=== PATIENT | female | born 2005 | race Caucasian/White ===

== ENCOUNTER 2024-10-31 01:51 | Emergency (ER) | payer OTHER, SELFPAY ==
[2024-10-31 01:54] VITALS: BP 140/95; PULSE 108; RESP 16; TEMP 37.1; O2SAT 98; BMI 18.9
--- NOTE | 2024-10-31 02:00 | PC.NURSE ---
per MD Hatch, to hold off on imaging until patient is evaluated in ED.
--- OUTSIDE RECORDS SUMMARY | 2024-10-31 03:18 | XMS_ITS | Encounter Summary ---
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 Name Role Phone Unavailable Primary Care Provider Unavailabl e Encounter Details Date Type Department Care Team (Late st Contact Info) Description 11/23/2017 Conversion Encounter [facility] [address] [address] Social History Tobacco Use Types Packs/Day Years Used Date Smoking Tobacco: Never Assessed Comments Unknown Sex and Gender Information Value Date Recorded Sex Assigned at Not on file Legal Sex Female 6:19 PM EDT Gender Identity Not on file Sexual Orientation Not on file documented as of this encounter Plan of Treatment Not on file documented as of this encounter Visit Diagnoses Not on filedocumented in this encounter
--- NOTE | 2024-10-31 04:10 | PC.NURSE ---
Pt states tired and wants to go home to sleep . [facility]
== END 2024-10-31 04:12 | disposition left against medical advice (07) ==
PROVIDERS: Emergency Provider Emergency Medicine
DX: R51.9 Headache, unspecified (principal); Z53.21 Procedure and treatment not carried out due to patient leaving prior to being seen by health care provider
CPT/HCPCS: 99281

== ENCOUNTER 2025-02-16 10:49 | Outpatient (AMB) | payer OTHER, SELFPAY ==
--- NOTE | 2025-02-16 10:53 | A.OFFPC_ITS ---
Vital Signs 02/16/25 10:58 Height 5 ft 1 in Weight 104 lb 8 oz BMI 19.7 BP 122/70 Blood Pressure Location Lt brachial Position Sitting Respiration 12 Pulse 77 Pulse Source Pulse Oximeter Temp 96.9 F Temp Source Oral Pulse Oximetry (%) 99 Oxygen Delivery Method Room Air Intake Visit Reasons: Est. Care Intake Note: New patient to establish care Weigher And Grader Required: No Allergies nickel Allergy (Severe, Verified 02/16/25 10:57) Unknown Penicillins Allergy (Verified 02/16/25 10:57) Hives Medication List - Last Reviewed 02/16/25 by Kiley Ludwig MA clindamycin phosphate 1% topical QAM norgestimate-ethinyl estradiol 0.25-0.035 mg (Sprintec (28)) 1 tab PO DAILY spironolactone 25 mg PO DAILY Tobacco use date assessed: 02/16/25 Dental Screening Dental Screen Date: 02/16/25 Did you have a dental visit in the last 12 months?: Yes Did you have a dental problem in the last 6 months where you did not have access to dental care?: No Was dental information given to patient?: Patient has dentist HPI HPI Comments History of Present Illness Details 19 y/o F with migraine w/o aura, ARBNE, ac ne, fhx melanoma Social: [employer]; has a boyfriend; lives w/ parents and brother; 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 No auras. Bad during menses (quarterly periods to help), 5 x month when she doesnt have her period; during menses every day. No other known triggers. No family hx of migraine headaches. Has tried sumitriptan,nsaids, apap, amytriptyline, vitamins, was on a preventative and that didnt help. Has assoc n/v. ARBEN: has had 3 therapists; didnt help; ARBEN causes vomiting at times. Can be worse in social settings; and when alone. Sx are present most of the time; worse at others. Has never been on meds. Denies si/hi. Review of Systems - Neurological: Reports migraine headach es without aura. - Psychiatric: Reports anxiety with naus ea and vomiting, social distress. Physical Exam General: Well developed, well nourished, in no acute distress. Appears stated age. Head: Normocephalic, atraumatic. Eyes: Pupils are equal, round and reactive to light and accommodation. Conjunctivae are clear. Vision grossly normal. Ears: TMs clear AU, EACS WNL Nose: Patent, without discharge. Neck: Supple, no adenopathy or thyromegaly. Lungs: Clear to auscultation bilaterally. No rales, rhonchi or wheeze noted. Good air flow in all [place]. Heart: Regular rhythm, Mildly tachycardic. No murmurs, click, rubs or gallops are noted. Neurologic: Gait and station normal. Cranial Nerves 2-12 intact. Motor strength grossly symmetrical and intact. No sensory loss. Balance normal. Psych: Normal eye contact, affect and mood appropriate, and normal interactions. Patient is alert and appropriate to context. Results Pending Discussion Notes I discussed the chronic and cyclic nature of the patient's migraines, potentially linked to her menstrual cycle. We reviewed her previous treatment attempts including sumatriptan without effect, and proposed Ubrelvy as a new line of abortive therapy, explaining its method of action and potential insurance issues. We also discussed nutritional supplements such as magnesium and vitamin B2 for long-term migraine density reduction. On the topic of her generalized anxiety disorder, I proposed the use of citalopram, starting at a low dose to assess tolerance to reduce her chronic anxiety symptoms. I advised on warning signs of worsening conditions to prompt earlier follow-up or intervention. We addressed the use of the patient portal for continuity of care and streamlined communication. Finally, I highlighted the need for follow-up to review her response to new medication strategies, and the possibility of altering dosages or medication types based on symptom improvement and side effect profile. Patient was given time to ask questions. All questions were answered to their satisfaction. Assessment and Plan 1. Migraine without Aura - Ubrelvy for migraine onset 50mg at on set, repeat dose in 2 hours PRN, DNE 2 tabs/day. Magnesium and riboflavin for prevention. - Medication timing detailed and potenti al insurer issues acknowledged. 2. Generalized Anxiety Disorder - Start citalopram 5 mg, increase to 10 mg, monitor for side effects. - Zofran for nausea management. 3. Tetanus Immunization - Tetanus booster completed. Vaccination record updated. Labs to est baseline and r/o contributory cause Patient Instructions - Take Ubrelvy for migraines as directed ; repeat dose if needed. - Begin magnesium and riboflavin nightly . - Start citalopram at half a 10 mg table t for two weeks, then a whole tablet daily. - Use Zofran for nausea before vomiting starts. - Follow up on labs results using [email or web address] portal. - Expect a follow-up appointment in six weeks. Consent Patient was informed and verbally consented to the use of an ambient scribe for clinic note documentation during this visit. Total time spent caring for the patient today was 40 minutes. This includes time spent before the visit reviewing the chart, time spent during the visit, and time spent after the visit on documentation, reviewing laboratory results, diagnostic imaging, medications, performing a medically necessary evaluation, counseling on diagnoses, care coordination, ordering appropriate tests, ordering appropriate medications, review of tests performed by other providers, reporting test results with the patient, communication with other healthcare providers. [facility] Medical History (Updated 02/16/25 @ 11:49 by Mahi Burnett, [facility]) Anxiety Headache Surgical History (Updated 02/16/25 @ 11:01 by Kiley Ludwig MA) No pertinent past surgical history Family History (Updated 02/16/25 @ 11:03 by Kiley Ludwig MA) Sister Asthma Brother Asthma Paternal Grandmother Diabetes Maternal Grandfather Melanoma Social History (Updated 02/16/25 @ 11:00 by Kiley Ludwig MA) Household Members: Family Both parents involved: Yes Housing: House Are you a primary personal care service provider to a significant other at home: No Do you presently have visiting nurse or other home services: No 75 years or older and lives alone: No Alcohol intake: never Patient Tobacco Use Status: Never used Tobacco e-Cigarette/Vaping Use: Never Used Second Hand Smoke Exposure: No service: No Current occupational status: employed and student Cognitive needs: No Hearing needs: No Vision needs: Yes (wear contacts) Questionnaire PHQ-9 Over the last 2 weeks, how often have you been bothered by any of the following problems? 1. Little interest or pleasure in doing things: not at all 2. Feeling down, depressed, or hopeless: not at all 3. Trouble falling or staying asleep, or sleeping too much: not at all 4. Feeling tired or having little energy: not at all 5. Poor appetite or overeating: not at all 6. Feeling bad about yourself - or that you are a failure or have let yourself or your family down: not at all 7. Trouble concentrating on things, such as reading the newspaper or watching television: not at all 8. Moving or speaking so slowly that other people could have noticed. Or the opposite - being so fidgety or restless that you have been moving around a lot more than usual: not at all 9. Thoughts that you would be better off or of hurting yourself in some way: not at all Total score: 0 Depression Screening Interpretation: Negative Depression Screening Done: Yes 19813 - PHQ-9 Billing: Yes Source: Developed by Drs. Clayton Nunez, Iqra Jones, Amilcar Hill and colleagues, with an educational lili from [employer]. Thrive Questionnaire Date Thrive assessed: 02/16/25 I am a: Patient What is your living situation today?: I have a steady place to live Within the past 12 months, did the food you bought not last and you didn't have the money to get more?: Never true Within the past 12 months, did you worry whether your food would run out before you got money to buy more?: Never true Do you have trouble paying for medicines?: No Do you have trouble getting transportation to medical appointments?: No Do you have trouble paying your heating and electricity bill?: No Do you have trouble taking care of your child, family member or friend?: No Do you have trouble with day-to-day activities such as bathing, preparing meals, shopping, managing finances, etc.?: No Are you currently unemployed and looking for a job?: No Are you interested in more education?: Yes Please select the resources that you would like help with: None Currently or been in a relationship where the following occur: No concerns reported THRIVE Score: 0 AUDIT C Alcohol Use Questionnaire (AUDIT-C) 1. How often do you have a drink containing alcohol?: Monthly or less 2. How many drinks containing alcohol do you have on a typical day when you are drinking?: 1 or 2 3. How often do you have six or more drinks on one occasion?: Never Total Score: 1 Score Reviewed/Action Taken: Yes ARBEN-7 AMB Questionnaire ARBEN-7 Date ARBEN - 7 assessed: 02/16/25 Feeling nervous, anxious, or on edge: 1 = Several days Not being able to stop or control worryin = Several days Worrying too much about different things: 1 = Several days Trouble relaxin = Several days Being so restless that it is hard to sit still: 1 = Several days Becoming easily annoyed or irritable: 1 = Several days Feeling afraid as if something awful might happen: 1 = Several days Total ARBEN-7 score (0-4 normal; 5-9 mild; 10-14 moderate; 15-21 severe): 7 Source: Developed by Drs. Clayton Nunez, Iqra Jones, Amilcar Hill and colleagues, with an educational lili from [employer]. ARBEN-7 Assessment Billing ARBEN-7 Assessment Tool: ARBEN-7 Assessment 25697 Physical exam (Primary Care) Vital Signs: Last Vital Signs Temp 96.9 F 02/16/25 10:58 Pulse 77 02/16/25 10:58 Resp 12 02/16/25 10:58 BP 122/70 02/16/25 10:58 Pulse Ox 99 02/16/25 10:58 Oxygen Delivery Method Room Air 02/16/25 10:58 BMI result Body Mass Index 19.7 Tobacco/Smoking Status: Tobacco use Status Tobacco use date assessed 02/16/25 02/16/25 11:03 Patient Tobacco Use Status Never used Tobacco 02/16/25 11:03 e-Cigarette/Vaping Use Never Used 02/16/25 11:03 PHQ-9: PHQ-9 Score PHQ-9: Total score 0 02/16/25 11:13 Depression Screening Interpretation: Negative Thrive Assessment: Date of Thrive Assessment Date Thrive assessed 02/16/25 02/16/25 11:03 Currently or been in a relationship where the following occur: No concerns reported Immunizations Boostrix Tdap 2.5 Lf unit-8 mcg-5 Lf/0.5 mL intramuscular syringe Performing Provider: SÁNCHEZ Michael Performing Location[place] [facility] Administered by: Kiley Ludwig MA on 02/16/25 11:45 Dose Route Admin Location Dispensed Lot Number Expiration Date [facility] Glue Bone Drier 0.5 mL IM Left Deltoid 0.5 mL [id number] 04/26/27 09495-315-15 [employer] Total Dispensed Waste 0.5 mL 0 % VIS Given Date VIS Provided VIS Publication Date 02/16/25 Single Vaccine 21 Eligibility Eligibility Date Funding Source Not [facility] Eligible 02/16/25 Private Coding Level of Care Code New Pt Level 4 (08622) Complex EM visit Add On G2211 Diagnoses Encounter to establish care with new provider Z76.89 ARBEN (generalized anxiety disorder) F41.1 Migraine without aura and without status migrainosus, not intractable G43.009 Status migrainosus presence: without status migrainosus Intractability: not intractable Need for Tdap vaccination Z23 Laboratory exam ordered as part of routine general medical examination Z00.00 Acne vulgaris L70.0 Acne type: acne vulgaris Additional Codes ARBEN-7 Assessment Billing - ARBEN-7 Assessment Tool: ARBEN-7 Assessment 84721 ([id number]) PHQ-9 - 30092 - PHQ-9 Billing: Yes ([id number]) Assessment & Plan Assessment & Plan (1) Encounter to establish care with new provider: Code(s): Z76.89 - Persons encountering health services in other specified circumstances (2) ARBEN (generalized anxiety disorder): Code(s): F41.1 - Generalized anxiety disorder Category: Medical (3) Migraine without aura: Code(s): G43.009 - Migraine without aura, not intractable, without status migrainosus Category: Medical Qualifiers: Status migrainosus presence: without status migrainosus Intractability: not intractable Qualified Code(s): G43.009 - Migraine without aura, not intractable, without status migrainosus (4) Need for Tdap vaccination: Code(s): Z23 - Encounter for immunization Category: Medical (5) Laboratory exam ordered as part of routine general medical examination: Code(s): Z00.00 - Encounter for general adult medical examination without abnormal findings Category: Medical (6) Acne: Comment: managed by Derm Code(s): L70.9 - Acne, unspecified Category: Medical Qualifiers: Acne type: acne vulgaris Qualified Code(s): L70.0 - Acne vulgaris Plan . Orders: Orders Complete Blood Count no Diff Today F41.1 - Generalized anxiety disorder, G43.009 - Migraine without aura, not intractable, without status migrainosus, Z00.00 - Encounter for general adult medical examination without abnormal findings Lipid Panel Today F41.1 - Generalized anxiety disorder, G43.009 - Migraine without aura, not intractable, without status migrainosus, Z00.00 - Encounter for general adult medical examination without abnormal findings TDaP Immunization Today Z23 - Encounter for immunization Comprehensive Met. Panel Today F41.1 - Generalized anxiety disorder, G43.009 - Migraine without aura, not intractable, without status migrainosus, Z00.00 - Encounter for general adult medical examination without abnormal findings Hemoglobin A1c Today F41.1 - Generalized anxiety disorder, G43.009 - Migraine without aura, not intractable, without status migrainosus, Z00.00 - Encounter for general adult medical examination without abnormal findings Microalbumin, Random (w Creat) Today F41.1 - Generalized anxiety disorder, G43.009 - Migraine without aura, not intractable, without status migrainosus, Z00.00 - Encounter for general adult medical examination without abnormal findings TSH reflex Free T4 Today F41.1 - Generalized anxiety disorder, G43.009 - Migrai ne without aura, not intractable, without status migrainosus, Z00.00 - Encounter for general adult medical examination without abnormal findings Vitamin D 25-OH Total Today F41.1 - Generalized anxiety disorder, G43.009 - Migraine without aura, not intractable, without status migrainosus, Z00.00 - Encounter for general adult medical examination without abnormal findings Vitamin B12 and Folate Today F41.1 - Generalized anxiety disorder, G43.009 - Migraine without aura, not intractable, without status migrainosus, Z00.00 - Encounter for general adult medical examination without abnormal findings Medications: New magnesium oxide 400 mg PO BEDTIME 90 caps 2RF ubrogepant (Ubrelvy) 50 mg PO DAILY PRN 30 tabs 2RF migraine headache riboflavin (vitamin B2) 400 mg PO BEDTIME 90 tabs 2RF ondansetron HCl 4 mg PO Q8H PRN 15 tabs 3RF nausea and vomiting 3 days citalopram 1/2 tab daily for 2 weeks then 1 tab daily 10 mg PO DAILY 30 tabs 1RF Patient Instructions: Patient Instructions - Take Ubrelvy for migraines as directed; repeat dose if needed. - Begin magnesium and riboflavin nightly. - Start citalopram at half a 10 mg tablet for two weeks, then a whole tablet daily. - Use Zofran for nausea before vomiting starts. - Follow up on labs results using patient portal. - Return as scheduled to follow up, sooner as needed Walk-In Care (Urgent Care): We Make it Easy Walk-in for urgent medical issues such as: ? Seasonal Allergies ? Insect Bites ? Cough ? Diarrhea ? Acute Asthma Attacks ? Back, Knee or Joint Pain ? Ear Infection ? Fever without a Rash ? Headaches ? Nausea ? [place], Rash or Skin Irritation ? Sore Throat ? Sports Physicals ? Vomiting Most insurances are accepted. Patients do not need to be part of the [facility] to seek care at the walk-in clinic. Locations [facility] , [place] [address] ? [phone] [facility] Walk-In Care in [place] provides services to ages 18 and over. Open Friday-Friday: 8 a.m. to 5 p.m. and Friday: 9 a.m. to 3 p.m.* *Hours may vary due to staffing availability. To confirm Walk-In Care hours in [place], please call [phone]. [address] [place] [address] ? [phone] [facility] Walk-In Care in [place] provides services to ages 12 and over. Open Friday-Friday: 8 a.m. to 5 p.m. Hours may vary due to staffing availability. To confirm Walk-In Care hours in [place], please call [phone]. LABORATORY SERVICES: [facility] [place] Primary Location [address] [place] [address] Friday through Friday 6:00 AM ? 5:00 PM Friday 7:00 AM ? 11:00 AM* [phone] The [facility] is centrally located near the front entrance of the [facility] for easy outpatient access. Convenient parking is provided for outpatients. *Hours may vary due to staffing availability. To confirm Laboratory hours for any location, please call [phone]. Offsite Location For your convenience, we offer offsite laboratory draw stations at the following locations: [address] [place] [address] [address], [address], [place] Friday through Friday 7:30 AM ? 1:00 PM* [phone] *Hours may vary due to staffing availability. To confirm Laboratory hours for any location, please call [phone]. [place] ? [facility] [address] [facility] [place] Friday through Friday 6:00 AM ? 3:30 PM* Friday 6:30 AM ? 3 PM* [phone] *Hours may vary due to staffing availability. To confirm Laboratory hours for any location, please call [phone]. [address] [facility] Friday through Friday 7:30 AM ? 4:00 PM* [phone] *Hours may vary due to staffing availability. To confirm Laboratory hours for any location, please call [phone] [place] [address] Friday through 9:00 AM ? 4:00 PM* *Hours may vary due to staffing availability. To confirm Laboratory hours for any location, please call [phone]. Appointments are not necessary. Walk-ins are welcome. Like all the departments throughout the [facility], our Lab undergoes frequent reviews to ensure the quality and accuracy of test results, and our staff takes special pride in its status as a nationally accredited facility. Patient Portal: ONE PATIENT. ONE RECORD. BETTER CARE. [facility] has a fully integrated, cutting- edge mobile electronic health information system that has revolutionized the way we care for our patients and manage our organization. This system improves communication and coordination enabling us to provide safe, higher-quality care, and an overall positive experience for staff and patients. Our first priority, as always, is to deliver the highest quality care possible. The system is running in the background supporting that priority. This portal is for all [facility] services and practices. If you are experiencing any technical difficulties with enrolling or logging into the Patient Portal please complete the [facility] Patient Portal Technical Support Form. [facility] now offers a new secure on-line interactive tool for patients to review their health information ? ?Patient Portal. This interactive web portal will enable patients and their families to take an active role in their care by providing easy, secure access to their health information via the internet. The Patient Portal provides patients with instant access to their health information, including laboratory results, medications, allergies, demographic information, visit history, and more. In addition to managing their own care, parents and health care proxies with authorized consent will appreciate the ability to access the records of those individuals for whom they provide care. Please note: if you wish to gain access (Proxy) to another patient?s portal, you will be required to come to the Medical Records Department in person at [facility]. Both the patient giving proxy access and the proxy will need to provide photo identification and complete the appropriate authorization. The Patient Portal also allows track their appointments online. The [facility] Patient Portal also saves patients time by allowing them to submit updates to their demographic and contact information prior to their visits. Portal email notifications will also alert patients to any new activity on their portal, such as test results and new appointments. In order to initially enroll in the [facility] Patient Portal, you will need to enter some required information including the following: * your [facility] Medical Record number * your personal home email address * name * date of Please note: In order to enroll in the [facility] Patient Portal, we need to have your email address on file in your electronic medical record. ?The email address needs to be specific for one person (yourself) in order for your Portal enrollment to be successful. ?You can update your email address in person with our Registration staff when you are registering for a hospital visit. ?Otherwise, you will need to come to the Health Information Management (Medical Records) Department at [facility]. ?We are open from Friday ? Friday from 7:30 a.m. ? 4:30 p.m. ?You will be required to present a photo id. Once you have successfully enrolled in the Patient Portal, you will receive a one-time user id and password for the Portal, sent to your email address. ?This will allow you to log into the Patient Portal within 99 hrs and reset your own logon id and password, and define personal security questions. ?Once your permanent login and password have been set, you can log into the [facility] Patient Portal at any time via the blue button above or from the Portal Logon button on any page of the [facility] website. [facility] encourage all of our patients to enroll in Patient Portal as it presents a valuable opportunity for patients and their families to actively participate in their care and stay healthy Welcome to [facility]. ?We look forward to working with you.
[2025-02-16 10:58] VITALS: BP 122/70; PULSE 77; RESP 12; TEMP 36.1; O2SAT 99; BMI 19.7
--- OUTSIDE RECORDS SUMMARY | 2025-02-16 11:43 | XMS_ITS | Clinical Summary ---
Author Organization [facility] Address [address] [place] [address] Care Team Providers Care Line Mover Name Role Phone Jennifer Cervantes MD Primary Care Provider [phone] Allergies Active Allergy Reactions Criticality Noted Date Comments Penicillins Rash Low 01/17/2010 No hives, was probably 5thdisease,but mom prefers no PCN Medications clindamycin (CLEOCIN T) 1 % lotion Apply small amount QAM 06/05/20 21 Active magnesium aspart,citrate ,oxide (Triple Magnesium Complex) 400 mg magnesium capsule Take 1 capsule by mouth 1 (one) time each day. 05/05/20 23 Active riboflavin (VITAMIN B2) 50 mg tablet tablet Take 1 tablet (50 mg total) by mouth 1 (one) time each day. 05/05/20 23 Active SUMAtriptan (IMITREX) 50 mg tablet Take at the beginning of the headaches, May repeat dose once after 2 hours, if needed. 04/17/20 22 Active tretinoin (RETIN-A) 0.05 % cream APPLY A PEA SIZED AMOUNT AT BEDTIME 10/18/19 21 Active norgestimate-e thinyl estradioL (Estarylla) 0.25-0.035 mg per tablet TAKE 1 TABLET DAILY 84 tablet 5 02/09/20 25 Active norgestimate-e thinyl estradioL (ORTHO-CYCLEN) 0.25-35 mg-mcg per tablet Take 1 tablet by mouth 1 (one) time each day. 84 tablet 1 08/24/19 25 025 Discontinued Active Problems Problem Noted Date Diagnosed Date Attention deficit disorder (ADD) without hyperac tivity 08/06/2018 Acne 07/02/2017 Migraines 07/02/2017 [facility]08[facility]16[facility]2024[facility] of lumbar region 07/05/2016 Nevus of finger 07/01/2014 Overview (08/16/2024): Under thumb nail as well, length of lateral cuticle, brown- black; will see derm; saw [place] [facility] twice 2014 and no x, monitor for changes Immunizations Name Administration Dates Next Due DTaP (Infanrix) 6wks to less than 7yo ,02/19/2005,05/02/2004,03/02,01/02/2004 CHbK-INL-CTA (Pentacel) 2mo to less than 5yo 02/19/2005,05/02/2004,03/02/2004,01/01 HPV 9-valent (Gardisil) 9yo to less than 46yo 10/23/2015,07/03/2015,04/17/2015 Hepatitis A Pediatric (Havri x; Vaqta) 12mo to less than 19yo 07/02/2017,07/05/2016 Hepatitis B Pediatric (Enger ix B; Recombivax HB) to less than 20 yo 07/26/2004,03/02/2004,2003 IPV Inactivated polio (Ipol) 6wks and older 11/09/2008,08/01/2004,03/02/2004,01/01 Influenza Quadravalent, MDCK , 0.5ml, preservative free (Flucelvax) 6mo and older 05/05/2023 Influenza trivalent, 0.5mL, preservative free (Fluarix; FluLaval; Fluzone) ages 6mo and older (Afluria) 3 years and older 03/26/2024,06/01/2021,07/09/2019 Influenza trivalent, with pr eservative (Fluzone; Afluria) 6mo and older 06/28/2005,05/02/2004 MMR, measles mumps and rubel la Live (Priorix; M-M-R II) 12mo and older 12/31/2007,11/01/2004 Meningococcal MCV4P 07/18/2020,04/17/2015 Pneumococcal Conjugate Vacci ne, 7 Valent 02/19/2005,05/02/2004,03/02/2004,01/01 Tdap Tetanus diptheria acell ular pertussis (Boostrix; Adacel) 7yo and older 04/17/2015 Varicella live (Varivax) 12m o and older 12/31/2007,11/01/2004 Surgical History Surgery Date Site/Laterality Comments OTHER SURGICAL HISTORY PROCEDURE: DENIES PREVIOUS SURGERY Medical History Medical History Date Comments Wrist fracture, left 2015; DX:Wrist fr acture, left; COMMENT: casted; thought possible snuff box but not on xray Family History Medical History Relation Name Comments ADD / ADHD Brother 1 Other: anxiety Brother 1 Asthma Brother 2 Depression Father Migraines Father Melanoma Maternal Grandfather fr onm dz; Other: scoliosis Maternal Grandfather Stroke Maternal Grandfather about a ge 50; blocked carotid artery Asthma Mother Other: psoriasis Mother Breast cancer Neg Hx Cancer of Small Bowel Neg Hx Colon cancer Neg Hx Kidney cancer Neg Hx Ovarian cancer Neg Hx Pancreatic cancer Neg Hx Uterine cancer Neg Hx Relation Name Status Comments Brother 1 Alive Josef 07/26/00 Brother 2 Brother 3 Alive Paul 11/12/98 Father Alive Maternal Grandfather Mother Alive Social History Tobacco Use Types Packs/Day Years Used Date Smoking Tobacco: Never Smokeless Tobacco: Never Alcohol Use Standard Drinks/Week Comments Not Asked 0 (1 standard drink = 0.6 oz pur e alcohol) Comments Unknown Sex and Gender Information Value Date Recorded Sex Assigned at Not on file Legal Sex Female 7:23 PM EDT Gender Identity Not on file Sexual Orientation Not on file Obstetrics History Last Filed Vital Signs Vital Sign Reading Time Taken Comments Blood Pressure 107/71 03/26/2024 2:33 PM EDT Pulse 90 03/26/2024 2:33 PM EDT Temperature - - Respiratory Rate - - Oxygen Saturation - - Inhaled Oxygen Concentration - - Weight 46.2 kg (101 lb 12.8 oz) 03/26/2024 2:33 PM EDT Height 154.9 cm (5' 1 ) 03/26/2024 2:33 PM EDT Body Mass Index 19.23 03/26/2024 2:33 PM EDT Plan of Treatment Upcoming Encounters Date Type Department Care Team (Late st Contact Info) Description 05/25/2025 1:40 PM EST Office Visit Obstetrics and Gynecology - [address] [address] Kadie Hallman PA [address] [place] [address] Health Maintenance Due Date Last Done Comments Meningococcal B Vaccine (1 of 2 - Standard) 2019 HIV Screening 03/26/2022 Hepatitis C Screening 03/26/2022 Social Influencers of Health Screening 03/26/2022 COVID-19 Vaccine ( season) 2024 07/01/2021, 11/08/2020, 10/18/2020 Gonorrhea/Chlamydia Screening 06/19/2024 06/19/2023 Depression Screening 07/07/2024 Cervical Cancer Screening: Pap Smear 10/30/2024 Influenza Vaccine (#1) 2025 , 05/05/2023, 06/01/2021, Additional history exists Annual Well Child Visit (3-21 years old) 03/26/2025 03/26/2024, 06/19/2023, 01/10/2023, Additional history exists DTaP,Tdap,and Td Vaccines (7 - Td or Tdap) 04/17/2025 04/17/2015, 11/09/2008, 02/19/2005, Additional history exists Cholesterol Screening (Lipid Panel) 01/15/2028 01/14/2023 Hepatitis B Vaccines Completed 07/26/2004, 03/02/2004, 2003 HIB Vaccines Completed 02/19/2005, 04/07, 03/02/2004, Additional history exists Pneumococcal Vaccine: Pediatrics (0 to 5 Years) and At-Risk Patients (6 to 49 Years) Completed 02/19/2005, 05/02/2004, 03/02/2004, Additional history exists MMR Vaccines Completed 12/31/2007, 11/01/2004 Varicella Vaccines Completed 12/31/2007, 11/01/2004 IPV Vaccines Completed 11/09/2008, 02/04, 08/01/2004, Additional history exists HPV Vaccines Completed 10/23/2015, 06/07, 04/17/2015 Hepatitis A Vaccines Completed 07/02/2017, 07/05/20 16 Meningococcal ACWY Vaccine Completed 07/18/2020, RSV Immunization Patients Under 20 months Aged Out No longer eligible based on patient's age to complete this topic Procedures Procedure Name Priority Date/Time Associated Diagnosis Comments GONORRHEA/CHLAMYDIA SCRREENING Routine 06/19/2023 LIPID PANEL Routine 01/14/2023 from Last 3 Months or Most Recently Relevant to Health Maintenance Results * Gonorrhea/Chlamydia Screening (06/19/2023) Gonorrhea/Chla mydia Screening abstracted us Historical Provider HEALTH MAINTENANCE Final Result * Lipid panel (01/14/2023) LDL/HDL Ratio 2 0 - 4 Triglycerides 78 0 - 150 mg/dL Cholesterol 158 0 - 200 mg/dL HDL 65 >=40 mg/dL LDL Cholesterol 78 0 - 100 mg/dL Blood Venous blood specimen / Unknown Historical Provider LAB BLOOD ORDERABLES Latasha l Result from Last 3 Months or Most Recently Relevant to Health Maintenance Insurance [facility] Care Teams Line Mover Relationship Specialty Start Date End Date Jennifer Cervantes MD PCP - General 12/10/22
--- OUTSIDE RECORDS SUMMARY | 2025-02-16 11:43 | XMS_ITS | Clinical Summary ---
Author Organization [facility] Address [address] [place] [phone] Phone Care Team Providers Care Marble Rubber Name Role Phone Unavailable Primary Care Provider Unavailabl e Immunizations Immunization Administration Dates Next Due DTaP 11/09/2008, 5,05/02/2004,2003,01/02/2004 Hep B, ped/adol 07/26/2004,03/02/2004,2003 Hib (PRP-T) 02/19/2005, 4,03/02/2004,2003 IPV 11/09/2008, 5,03/02/2004,2003 Influenza, injectable, triva lent, preservative free 06/28/2005,05/02/2004 MMR 12/31/2007,11/01/2004 Pneumococcal Conjugate 02/19/2005,2003,03/02/2004,2003 Varicella 12/31/2007,11/01/2004 Family History Relation Name Status Comments Father Alive Problem with re ading. Dropped out in 9th grade. Dad felt he had similar problems age: 36 Father's Brother Alive 1 Dropped o ut Maternal Grandfather Alive Maternal Grandmother Alive Mother Alive finished H. S. age: 33 Social History Tobacco Use Types Packs/Day Years Used Date Smoking Tobacco: Never Assessed Comments Unknown Sex and Gender Information Value Date Recorded Sex Assigned at Not on file Legal Sex Female 6:19 PM EDT Gender Identity Not on file Sexual Orientation Not on file Last Filed Vital Signs Vital Sign Reading Time Taken Comments Blood Pressure - - Pulse - - Temperature 37.2 C (99 F) 09/25/2009 12:00 AM EDT Respiratory Rate - - Oxygen Saturation - - Inhaled Oxygen Concentration - - Weight 18.1 kg (40 lb) 09/25/2009 12:00 AM EDT Height - - Body Mass Index - - Plan of Treatment Health Maintenance Due Date Last Done Comments DTaP,Tdap,and Td Vaccines (6 - Tdap) 10/30/2014 11/09/2008, 02/19/2005, 05/02/2004, Additional history exists HPV Vaccines (1 - 3-dose series) 10/30/2018 Men B Vaccine (1 of 2 - Standard) 2019 COVID-19 Vaccine ( season) 2024 Influenza Vaccines (#1) 2025 06/28/2005, 05/02 Hepatitis B Vaccines Completed 07/26/2004, 03/02/2004, 2003 HIB Vaccines Completed 02/19/2005, 04/07, 03/02/2004, Additional history exists Pneumococcal Vaccine Completed 02/19/2005, 05/02/2004, 03/02/2004, Additional history exists MMR Vaccines Completed 12/31/2007, 11/01/2004 Varicella Vaccines Completed 12/31/2007, 11/01/2004 IPV Vaccines Completed 11/09/2008, 07/08, 03/02/2004, Additional history exists Hepatitis A Vaccines Aged Out No long er eligible based on patient's age to complete this topic Meningococcal Vaccine Aged Out No elizabeth sanjeev eligible based on patient's age to complete this topic
== END 2025-02-16 12:50 | disposition home or self-care (01) ==
LOC: HO.HMCFM 10:50
PROVIDERS: PCP Nurse Practitioner Family; Visit Provider Nurse Practitioner Family
DX: Z76.89 Persons encountering health services in other specified circumstances (principal); F41.1 Generalized anxiety disorder; G43.009 Migraine without aura, not intractable, without status migrainosus; Z23 Encounter for immunization; Z00.00 Encounter for general adult medical examination without abnormal findings; L70.0 Acne vulgaris

== ENCOUNTER → 2025-02-16 10:49 | Outpatient (BNVA) | payer OTHER, SELFPAY | PROVIDERS: PCP Nurse Practitioner Family; Visit Provider Nurse Practitioner Family | DX: Z00.00 Encounter for general adult medical examination without abnormal findings (principal); K21.9 Gastro-esophageal reflux disease without esophagitis; G43.909 Migraine, unspecified, not intractable, without status migrainosus; F41.1 Generalized anxiety disorder; G43.009 Migraine without aura, not intractable, without status migrainosus; L70.0 Acne vulgaris; Z23 Encounter for immunization; Z76.89 Persons encountering health services in other specified circumstances | CPT/HCPCS: 90471; 90715; 96127 ==

== ENCOUNTER 2025-02-17 09:31 | Outpatient (REF) | payer OTHER, SELFPAY ==
--- OUTSIDE RECORDS SUMMARY | 2025-02-17 10:09 | XMS_ITS | Encounter Summary ---
Author Organization [facility] Address [address] [place] [address] Phone Care Team Providers Care Body Die Maker Name Role Phone Unavailable Primary Care Provider Unavailabl e Encounter Details Date Type Department Care Team (Late st Contact Info) Description 11/23/2017 Con[facility]counter [facility] [address] [address] Social History Tobacco Use Types Packs/Day Years [...]
--- OUTSIDE RECORDS SUMMARY | 2025-02-17 10:09 | XMS_ITS | Clinical Summary ---
Author Organization [facility] Address [address] [place] [address] Care Team Providers Care Netting Inspector Name Role Phone Jennifer Cervantes MD Primary Care Provider [phone] Allergies Active Allergy Reactions Criticality Noted Date [...] 07/02/2017 Migraines 07/02/2017 [facility]08[facility]16[facility]2024[facility] scoliosis of lumbar region 07/05/2016 Nevus of finger 07/01/2014 Overview (08/16/2024): Under thumb nail as well, length of lateral cuticle, brown- black; will see derm; saw [place] [facility] twice 2014 and no x, monitor for changes Immunizations Name Administration Dates Next Due DTaP (Infanrix) 6wks to less than 7yo ,02/19/2005,05/02/2004,03/02,01/02/2004 HYjA-AZK-FUR (Pentacel) 2mo to less than 5yo 02/19/2005,05/02/2004,03/02/2004,01/01 [...] EST Office Visit Obstetrics and Gynecology - [address] [address] Kadie Hallman PA [address] [place] [address] Health Maintenance Due Date Last Done Comments [...] Most Recently Relevant to Health Maintenance Insurance [facility] Care Teams Netting Inspector Relationship Specialty Start Date End Date Jennifer Cervantes MD PCP - General 12/10/22
[2025-02-17 11:42] LABS: Hematocrit 41.5 % (37.0-47.0); Hemoglobin 13.8 g/dl (12.0-16.0); Mean Corpuscular HGB Conc 33.3 g/dl (31.0-35.0); Mean Corpuscular Hemoglobin 31.0 pg (27.0-33.0); Mean Corpuscular Volume 93.3 fL (80.0-98.0); NRBC Abs Auto 0.000 X10*3/uL (0.0-0.012); NRBC Pct Auto 0.0 /100WBC (0.0-0.2); Platelet Count 266 X10*3/uL (160-400); Red Blood Count 4.45 X10*6/uL (4.20-5.50); White Blood Count 6.6 X10*3/uL (4.8-10.8)
[2025-02-17 12:08] LABS: Alanine Aminotransferase 13 U/L (0-31); Albumin Level 4.3 g/dL (3.5-5.0); Alkaline Phosphatase 46 U/L (39-117); Anion Gap 13 (12-20); Aspartate Amino Transferase 32 U/L (5-31); Blood Urea Nitrogen 12 mg/dL (9-16); Calcium 8.9 mg/dL (8.4-10.2); Carbon Dioxide 21 mmol/L (22-29); Chloride 108 mmol/L (96-108); Cholesterol 194 mg/dL (<200); Estimated Glomerular Filt Rate > 60; HDL Cholesterol 55 mg/dL (>40); Potassium 4.0 mmol/L (3.3-5.1); Sodium 138 mmol/L (135-145); Total Protein 6.9 g/dL (6.5-8.0); Triglycerides 161 mg/dL (<150)
[2025-02-17 12:09] LABS: Hemoglobin A1C 108.9368 umol/L; Total Hemoglobin (HGBA1C) 3708.9984 umol/L
[2025-02-17 12:15] LABS: Microalbum/Creatinine Ratio Ur 3.7 ug/mg cr (<30)
[2025-02-17 12:50] LABS: Folate 8.3 ng/mL (> or = 4.0); Vitamin B12 253 pg/mL (200-900)
== END 2025-02-17 09:32 | disposition home or self-care (01) ==
LOC: HO.WFDLDS 09:31
PROVIDERS: Visit Provider Nurse Practitioner Family
DX: Z00.00 Encounter for general adult medical examination without abnormal findings (principal); G43.009 Migraine without aura, not intractable, without status migrainosus; F41.1 Generalized anxiety disorder; Z13.6 Encounter for screening for cardiovascular disorders; Z13.1 Encounter for screening for diabetes mellitus
CPT/HCPCS: 36415; 80053; 80061; 82043; 82306; 82570; 82607; 82746; 83036; 84443; 85027

== ENCOUNTER 2025-04-27 10:51 | Outpatient (AMB) | payer OTHER, SELFPAY ==
--- NOTE | 2025-04-27 10:53 | MHC.PC.OV ---
Vital Signs 04/27/25 11:05 Height 5 ft 1 in Weight 105 lb 2 oz BMI 19.9 BP 100/62 Blood Pressure Location Lt brachial Position Sitting Respiration 14 Pulse 99 Pulse Source Pulse Oximeter Temp 97.8 F Temp Source Temporal Artery Scan Pulse Oximetry (%) 98 Oxygen Delivery Method Room Air Intake Visit Reasons: FU celexa start/mirgraine mgmt Intake Note: Shruthi is here for follow up on celexa/migraine mgmt. Patient agreed to flu shot, however, mentions issues currently with eating eggs. Allergies nickel Allergy (Severe, Verified 04/27/25 11:26) Unknown Penicillins Allergy (Verified 04/27/25 11:26) Hives Medication List - Last Reconciled 04/27/25 by Mahi Burnett, PONY TRIMMER- citalopram 10 mg PO DAILY clindamycin phosphate 1% topical QAM magnesium oxide 400 mg PO BEDTIME norgestimate-ethinyl estradiol 0.25-0.035 mg (Sprintec (28)) 1 tab PO DAILY ondansetron HCl 4 mg PO Q8H PRN 3 days riboflavin (vitamin B2) 400 mg PO BEDTIME ubrogepant (Ubrelvy) 50 mg PO DAILY PRN Tobacco use date assessed: 04/27/25 Dental Screening Dental Screen Date: 04/27/25 Did you have a dental visit in the last 12 months?: Yes Did you have a dental problem in the last 6 months where you did not have access to dental care?: No Was dental information given to patient?: Patient has dentist HPI HPI Comments History of Present Illness Details 19 y/o F with migraine w/o aura, ARBEN, acne, fhx melanoma Social: [employer]; has a boyfriend; lives w/ parents and brother; 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 No auras. Bad during menses (quarterly periods to help), 5 x month when she doesnt have her period; during menses every day. No other known triggers. No family hx of migraine headaches. Has tried sumitriptan,nsaids, apap, amytriptyline, vitamins, was on a preventative and that didnt help. Has assoc n/v. Today:Migraine fu: taking preventatives, no change. More frequent. Ubrelvy has helped. Does not need to repeat 2nd dose. The plan will be to cont on abortive and preventative at the same dose for now. Previously: ARBEN: has had 3 therapists; didnt help; ARBEN causes vomiting at times. Can be worse in social settings; and when alone. Sx are present most of the time; worse at others. Has never been on meds. Denies si/hi. Today: Sx are better both alone and w/ crowd. No episodes of vomiting r/t mood; only for migraine. Taking at HS. Taking full tab. Had episode of feeling out of it x 1. Friend had same thing on same med. This happened around 12-1pm. Unrelated to headache. Sx lasted a few hours. fuzzy, not normal . Physical Exam General: Well developed, well nourished, in no acute distress. Appears stated age. Head: Normocephalic, atraumatic. Eyes: Pupils are equal, round and reactive to light and accommodation. Conjunctivae are clear. Vision grossly normal. Neck: Supple, no adenopathy or thyromegaly. Lungs: Clear to auscultation bilaterally. No rales, rhonchi or wheeze noted. Good air flow in all [place]. Heart: Regular rhythm, Mildly tachycardic. No murmurs, click, rubs or gallops are noted. Neurologic: Gait and station normal. Cranial Nerves 2-12 intact. Motor strength grossly symmetrical and intact. No sensory loss. Balance normal. Psych: Normal eye contact, affect and mood appropriate, and normal interactions. Patient is alert and appropriate to context. Assessment and Plan 1. Migraine without Aura - Ubrelvy for migraine onset 50mg at onset, repeat dose in 2 hours PRN, DNE 2 tabs/day. Magnesium and riboflavin for prevention. - Medication timing detailed and potential insurer issues acknowledged. 2. Generalized Anxiety Disorder - Cont citalopram 10 mg, monitor for side effects. - Zofran for nausea management. 3. Flu Immunization - completed. Vaccination record updated. Patient Instructions - Take Ubrelvy for migraines as directed; repeat dose if needed. - Cont magnesium and riboflavin nightly. - Cont citalopram 10 mg tablet - Use Zofran for nausea before vomiting starts. - Expect a follow-up appointment in six weeks, sooner PRN Consent Patient was informed and verbally consented to the use of an ambient scribe for clinic note documentation during this visit. [facility] Medical History (Updated 04/27/25 @ 11:41 by SÁNCHEZ Michael) Anxiety Headache Surgical History (Updated 02/16/25 @ 11:01 by Kiley Ludwig MA) No pertinent past surgical history Family History Sister Asthma Brother Asthma Paternal Grandmother Diabetes Maternal Grandfather Melanoma Social History (Updated 04/27/25 @ 11:05 by Sally Martinez CMA) Household Members: Family Both parents involved: Yes Housing: House Are you a primary respiratory care practitioner to a significant other at home: No Do you presently have visiting nurse or other home services: No 75 years or older and lives alone: No Alcohol intake: never Patient Tobacco Use Status: Never used Tobacco e-Cigarette/Vaping Use: Never Used Second Hand Smoke Exposure: No Use of substances other than those prescribed or required for medical reasons: No service: No Current occupational status: employed and student Cognitive needs: No Hearing needs: No Vision needs: Yes (wear contacts) Questionnaire Thrive Questionnaire Date Thrive assessed: 02/14/25 I am a: Patient What is your living situation today?: I have a steady place to live Within the past 12 months, did the food you bought not last and you didn't have the money to get more?: Never true Within the past 12 months, did you worry whether your food would run out before you got money to buy more?: Never true Do you have trouble paying for medicines?: No Do you have trouble getting transportation to medical appointments?: No Do you have trouble paying your heating and electricity bill?: No Do you have trouble taking care of your child, family member or friend?: No Do you have trouble with day-to-day activities such as bathing, preparing meals, shopping, managing finances, etc.?: No Are you currently unemployed and looking for a job?: No Are you interested in more education?: Yes Please select the resources that you would like help with: None Currently or been in a relationship where the following occur: No concerns reported THRIVE Score: 0 ARBEN-7 AMB Questionnaire ARBEN-7 Date ARBEN - 7 assessed: 02/16/25 Source: Developed by DrsWon Nunez, Iqra Jones, Amilcar Hill and colleagues, with an educational lili from [employer]. Physical exam (Primary Care) Vital Signs: Last Vital Signs Temp 97.8 F 04/27/25 11:05 Pulse 99 04/27/25 11:05 Resp 14 04/27/25 11:05 BP 100/62 04/27/25 11:05 Pulse Ox 98 04/27/25 11:05 Oxygen Delivery Method Room Air 04/27/25 11:05 BMI result Body Mass Index 19.9 Tobacco/Smoking Status: Tobacco use Status Tobacco use date assessed 04/27/25 04/27/25 11:08 Patient Tobacco Use Status Never used Tobacco 04/27/25 11:05 e-Cigarette/Vaping Use Never Used 04/27/25 11:05 Thrive Assessment: Date of Thrive Assessment Date Thrive assessed 02/14/25 04/27/25 10:54 Currently or been in a relationship where the following occur: No concerns reported Coding Level of Care Code Est Pt Level 3 (79476) Complex EM visit Add On G2211 Diagnoses ARBEN (generalized anxiety disorder) F41.1 Migraine without aura and without status migrainosus, not intractable G43.009 Status migrainosus presence: without status migrainosus Intractability: not intractable Influenza vaccination administered at current visit Z23 Assessment & Plan Assessment & Plan (1) ARBEN (generalized anxiety disorder): Code(s): F41.1 - Generalized anxiety disorder Category: Medical (2) Migraine without aura: Code(s): G43.009 - Migraine without aura, not intractable, without status migrainosus Category: Medical Qualifiers: Status migrainosus presence: without status migrainosus Intractability: not intractable Qualified Code(s): G43.009 - Migraine without aura, not intractable, without status migrainosus (3) Influenza vaccination administered at current visit: Onset Date: ~04/27/25 Code(s): Z23 - Encounter for immunization Category: Medical Plan . Orders: Orders Influenza [id number] Immunization Today Z23 - Encounter for immunization Medications: New Fluarix [id number] (PF) (flu vac ts (6mos up)-PF) 0.5 mL IM ONCE 0.5 mL 0RF NS Z23 - Encounter for immunization Changed From citalopram 1/2 tab daily for 2 weeks then 1 tab daily 10 mg PO DAILY 30 tabs 1RF To citalopram 10 mg PO DAILY 30 tabs 1RF
[2025-04-27 11:05] VITALS: BP 100/62; PULSE 99; RESP 14; TEMP 36.6; O2SAT 98; BMI 19.9
--- OUTSIDE RECORDS SUMMARY | 2025-04-27 14:06 | XMS_ITS | Encounter Summary ---
Author Organization [facility] Address [address] [place] [address] Care Team Providers Care Classroom Coordinator Name Role Phone Asia Prabhakar MD Primary Care Prov ider Jennifer Cervantes MD Primary Care Provider Un available Reason for Visit * Reason Onset Date Comments medication problems 10/12/2018 Encounter Details Date Type Department Care Team Description 10/12/2018 Telephone Pediatrics - [address] [address] Asia Prabhakar MD [address] [place] [id number] medication problems Social History Tobacco Use Types Packs/Day Years Used Date Smoking Tobacco: Never Smokeless Tobacco: Never Alcohol Use Standard Drinks/Week Comments Not Asked 0 (1 standard drink = 0.6 oz pur e alcohol) Sex Assigned at Date Recorded Not on file Job Start Date Occupation Industry Not on file Not on file Not on file documented as of this encounter Miscellaneous Notes * Telephone Encounter - Angely Nur L.P.N. - 10/12/2018 2:32 PM EDT amphetamine-dextroamphetamine (ADDERALL, 5MG,) 5 MG tablet 60 Tab 0 10/12/2018 11/11/2018 ?? Sig - Route: Take 2 Tabs by mouth daily for 30 days. - Oral This is the script that was given to dad. amphetamine-dextroamphetamine (ADDERALL, 5MG,) 5 MG This is the script that was destroyed. * Telephone Encounter - Kathi Ferrara - 10/12/2018 2:27 PM EDT What is the name of the medication patient is having a problem with?: Adderall What is the problem?: Ck is here picking up two scripts. He doesn't understand why one was writtenfor 5 and the other for 2 tablets of 5. Is the patient calling about the problem? NO If the patient is not the caller who is? father Is this a NEW medication?: NO How long has the patient been taking this medication? Just written again today Who prescribed this medication for the patient? Asia Prabhakar Who is patients PCP?: Asia Prabhakar Payor: [employer] / Plan: HMO $20 [place] [address] / Product Type: HMO [id number] documented in this encounter Plan of Treatment Not on file documented as of this encounter Visit Diagnoses Not on filedocumented in this encounter Care Teams Classroom Coordinator Relationship Specialty Start Date End Date Asia Prabhakar MD [address] [place] [address] PCP - General Pediatrics 12/03/14 12/09/22 Jennifer Cervantes MD [address] [place] [address] PCP - General Internal Medicine 12/10/22 documented as of this encounter
--- OUTSIDE RECORDS SUMMARY | 2025-04-27 14:06 | XMS_ITS | Encounter Summary ---
Author Organization [facility] Address [address] [place] [address] Care Team Providers Care Power Chisel Operator Name Role Phone Asia Prabhakar MD Primary Care Prov ider Jennifer Cervantes MD Primary Care Provider Un available Reason for Visit * Reason Onset Date Comments refill request 05/30/2021 Clindamycin Encounter Details Date Type Department Care Team Description 05/30/2021 Refill Dermatology - [address] [phone] Sheron Jha PA-C refill request (Clindamycin) Social History Tobacco Use Types Packs/Day Years [...] encounter Miscellaneous Notes * Telephone Encounter - Geneva Cavanaugh M.A. - 06/05/2021 9:00 AM EST Script sent to pharmacy. * Telephone Encounter - Geneva Cavanaugh M.A. - 06/01/2021 3:28 PM EST MAMTA 01/09/21 * Telephone Encounter - Deb Pierre - 05/30/2021 1:02 PM EST Patient would like script to be: E-PRESCRIBED/FAXED TO PHARMACY WHEN WAS THE PATIENT'S LAST APPOINTMENT IN ADULT MEDICINE? 01/09/2021 WHEN WAS THE LAST TIME THE PATIENT SAW THEIR PCP? Same as above Does patient have an upcoming appointment? No (THE MEDICATION REQUESTED IS ON THE MED LIST ABOVE) All of the medications requested were on the CURRENT MEDS list Did you check the Pharmacy information above?: YES Patient wants: 30 -day supply Is this a mail order prescription request ? NO If the refill is from a FAXED refill request what is the RX # listed on the fax? N/A Patients current insurance carrier is: Payor: [employer] SELF FUNDED / Plan: HMO $20 HERBERTH 1500 / Product Type: HMO [id number] documented in this encounter Plan of Treatment Not on file documented as of this encounter Visit Diagnoses Not on filedocumented in this encounter Care Teams Power Chisel Operator Relationship Specialty Start Date End Date Asia Prabhakar MD [address] [place] [address] PCP - General Pediatrics 12/03/14 12/09/22 Jennifer Cervantes MD [address] [place] [address] PCP - General Internal Medicine 12/10/22 documented as of this encounter
--- OUTSIDE RECORDS SUMMARY | 2025-04-27 14:06 | XMS_ITS | Encounter Summary ---
Author Organization [facility] Address [address] [place] [address] Care Team Providers Care Inhalation Therapy Aides Teacher Name Role Phone Asia Prabhakar MD Primary Care Prov ider Jennifer Cervantes MD Primary Care Provider Un available Reason for Visit * Reason Onset Date Comments REFERRAL 03/24/2017 Encounter Details Date Type Department Care Team Description 03/24/2017 Telephone Dermatology - [address] [phone] Asia Prabhakar MD [address] [place] [id number] REFERRAL Social History Tobacco Use Types Packs/Day Years Used Date Smoking Tobacco: Never Alcohol Use Standard Drinks/Week Comments Not Asked 0 (1 standard drink = 0.6 oz pur e alcohol) Sex Assigned at Date Recorded Not on file Job Start Date Occupation Industry Not on file Not on file Not on file documented as of this encounter Miscellaneous Notes * Telephone Encounter - Renetta Bear - 03/24/2017 9:24 AM EDT A referral was placed for Dermatology for this patient, however they have not responded to multiplephone calls and a letter mailed to their home address. documented in this encounter Plan of Treatment Not on file documented as of this encounter Visit Diagnoses Not on filedocumented in this encounter Care Teams Inhalation Therapy Aides Teacher Relationship Specialty Start Date End Date Asia Prabhakar MD [address] [place] [address] PCP - General Pediatrics 12/03/14 12/09/22 Jennifer Cervantes MD [address] [place] [address] PCP - General Internal Medicine 12/10/22 documented as of this encounter
--- OUTSIDE RECORDS SUMMARY | 2025-04-27 14:06 | XMS_ITS | Clinical Summary ---
Author Organization [facility] Address [address] [place] [address] Phone Care Team Providers Care Rigging Slinger Name Role Phone Unavailable Primary Care Provider [...] Vaccine (1 of 2 - Standard) 2019 Influenza Vaccines (#1) 2025 06/28/2005, 05/02 COVID-19 Vaccine ( - 2024- season) 2025 Hepatitis B Vaccines Completed 07/26/2004, 03/02/2004, 2003 [...]
--- OUTSIDE RECORDS SUMMARY | 2025-04-27 14:06 | XMS_ITS | Encounter Summary ---
Author Organization [facility] Address [address] [place] [address] Care Team Providers Care Heel Reducer Name Role Phone Asia Prabhakar MD Primary Care Prov ider Jennifer Cervantes MD Primary Care Provider Un available Encounter Details Date Type Department Care Team Description 07/18/2020 Telephone [facility] [address] [place] [address] Asia Prabhakar MD [address] [place], [place] [phone] Social History Tobacco Use Types Packs/Day Years Used Date Smoking Tobacco: Never Smokeless Tobacco: Never Alcohol Use Standard Drinks/Week Comments Not Asked 0 (1 standard drink = 0.6 oz pur e alcohol) Sex Assigned at Date Recorded Not on file Job Start Date Occupation Industry Not on file Not on file Not on file COVID-19 Exposure Response Date Recorded In the last month, have you been in contact with someone who was confirmed or suspected to have Coronavirus / COVID-19? No / Unsure 07/18/2020 2:51 PM EST documented as of this encounter Plan of Treatment Not on file documented as of this encounter Visit Diagnoses Not on filedocumented in this encounter Care Teams Heel Reducer Relationship Specialty Start Date End Date Asia Prabhakar MD [address] [place] [address] PCP - General Pediatrics 12/03/14 12/09/22 Jennifer Cervantes MD [address] [place] [address] PCP - General Internal Medicine 12/10/22 documented as of this encounter
--- OUTSIDE RECORDS SUMMARY | 2025-04-27 14:06 | XMS_ITS | Clinical Summary ---
Author Organization [facility] Address [address] [place] [address] Care Team Providers Care Planning Feeder Name Role Phone Jennifer Cervantes MD Primary Care Provider [phone] Allergies Active Allergy Reactions Criticality Noted Date Comments Penicillins Rash Low 01/17/2010 No hives, was probably 5thdisease,but mom prefers no PCN Medications clindamycin (CLEOCIN T) 1 % lotion Apply small amount QAM 1 Active magnesium aspart,citrate, oxide (Triple Magnesium Complex) 400 mg magnesium capsule Take 1 capsule by mouth 1 (one) time each day. 3 Active riboflavin (VITAMIN B2) 50 mg tablet tablet Take 1 tablet (50 mg total) by mouth 1 (one) time each day. 3 Active SUMAtriptan (IMITREX) 50 mg tablet Take at the beginning of the headaches, May repeat dose once after 2 hours, if needed. 2 Active tretinoin (RETIN-A) 0.05 % cream APPLY A PEA SIZED AMOUNT AT BEDTIME 1 Active norgestimate-et hinyl estradioL (Estarylla) 0.25-0.035 mg per tablet TAKE 1 TABLET DAILY 84 tablet 5 5 Active Active Problems Problem Noted Date Diagnosed Date Attention deficit disorder (ADD) without hyperac tivity 08/06/2018 Acne 07/02/2017 Migraines 07/02/2017 Overview (08/16/2024): Sees Anshul thru [facility] Idiopathic scoliosis of lumbar region 07/05/2016 Nevus of finger 07/01/2014 Overview (08/16/2024): Under thumb nail as well, length of lateral cuticle, brown- black; will see derm; saw [facility] twice 2015 and no x, monitor for changes Immunizations Immunization Administration Dates Next Due DTaP (Infanrix) 6wks to less than 7yo ,02/19/2005,05/02/2004,03/02,01/02/2004 [id number] (Pentacel) 2mo to less than 5yo 02/19/2005,05/02/2004,03/02/2004,01/01 [...] Medical History Date Comments Wrist fracture, left 2016; DX:Wrist fr acture, left; COMMENT: casted; thought [...] Care Team (Late st Contact Info) Description 05/31/2025 9:00 AM EST Office Visit Obstetrics and Gynecology - [facility] [address] [place] [phone] Patrice Lanie, [facility] [address] [place] [address] Health Maintenance Due Date Last Done Comments Meningococcal B Vaccine (1 of 2 - Standard) 2019 HIV Screening 03/26/2022 Hepatitis C Screening 03/26/2022 Social Influencers of Health Screening 03/26/2022 Gonorrhea/Chlamydia Screening 06/19/2024 06/19/2023 Depression Screening 07/07/2024 Cervical Cancer Screening: Pap Smear 10/30/2024 COVID-19 Vaccine ( season) 2025 07/01/2021, 11/08/2020, 10/18/2020 Influenza Vaccine (#1) 2025 , 05/05/2023, 06/01/2021, Additional history exists Annual Well Child Visit (3-21 years old) 03/26/2025 03/26/2024, 06/19/2023, 01/10/2023, Additional history exists DTaP,Tdap,and Td Vaccines (7 - Td or Tdap) 04/17/2025 04/17/2015, 11/09/2008, 02/19/2005, Additional history exists Cholesterol Screening (Lipid Panel) 01/15/2028 01/14/2023 RSV Immunization Adult Patients (1 - 1-dose 75+ series) 10/30/2078 Hepatitis B Vaccines Completed 07/26/2004, 03/02/2004, 2003 [...] Health Maintenance Results * Gonorrhea/Chlamydia Screening (06/19/2023) HM Gonorrhea/Chla mydia Screening abstracted Historical Provider HEALTH MAINTENANCE Final Result * [...] Most Recently Relevant to Health Maintenance Insurance [facility] Care Teams Planning Feeder Relationship Specialty Start Date End Date Jennifer Cervantes MD PCP - General 12/10/22
--- OUTSIDE RECORDS SUMMARY | 2025-04-27 14:06 | XMS_ITS | Encounter Summary ---
Author Organization [facility] Address [address] [place] [address] Care Team Providers Care Statue Maker Name Role Phone Asia Prabhakar MD Primary Care Prov ider Jennifer Cervantes MD Primary Care Provider Un available Encounter Details Date Type Department Care Team Description 04/22/2018 Freight Receiver Report Medical Records [address] [place] [address] Solange Heard MD Social History Tobacco Use Types Packs/Day Years [...] on filedocumented in this encounter Care Teams Statue Maker Relationship Specialty Start Date End Date Asia Prabhakar MD [address] [place] [address] PCP - General Pediatrics 12/03/14 12/09/22 Jennifer Cervantes MD [address] [place] [address] PCP - General Internal Medicine 12/10/22 documented as of this encounter
--- OUTSIDE RECORDS SUMMARY | 2025-04-27 14:06 | XMS_ITS | Encounter Summary ---
Author Organization [facility] Address [address] [place] [address] Care Team Providers Care Centrifugal Station Operator Name Role Phone Brook Lozano MD Primary Care Provider Haydee vailable Asia Prabhakar MD Primary Care Prov ider Jennifer Cervantes MD Primary Care Provider Un available Encounter Details Date Type Department Care Team Description 08/26/2014 Security Installation Sales Technician Report Medical Records [address] [place] [id number] [place] [address] Dermatology & Laser Social History Tobacco Use Types Packs/Day Years [...] on filedocumented in this encounter Care Teams Centrifugal Station Operator Relationship Specialty Start Date End Date Brook Lozano MD PCP - General 11/15/09 12/02/14 Asia Prabhakar MD [address] [place] [id number] PCP - General Pediatrics 12/03/14 12/09/22 Jennifer Cervantes MD [address] [place], [place] PCP - General Internal Medicine 12/10/22 documented as of this encounter
--- OUTSIDE RECORDS SUMMARY | 2025-04-27 14:06 | XMS_ITS | Encounter Summary ---
Author Organization [facility] Address [address] [place] [address] Care Team Providers Care Block Feeder Name Role Phone Asia Prabhakar MD Primary Care Prov ider Jennifer Cervantes MD Primary Care Provider Un available Reason for Visit * Reason Onset Date Comments eye problems 03/28/2022 scratched in/on eyeball by a cat Encounter Details Date Type Department Care Team Description 03/28/2022 Telephone Pediatrics - [address] [address] Asia Prabhakar MD [address] [place] [address] eye problems (scratched in/on eyeball by a cat) Social History Tobacco Use Types Packs/Day Years [...] encounter Miscellaneous Notes * Telephone Encounter - Marilia Belcher L.P.N. - 03/28/2022 3:16 PM EDT Patient reported her cat scratched her eyeball. Patient will go to ER for now evaluation. * Telephone Encounter - Karla Cherry - 03/28/2022 2:56 PM EDT Symptoms patient is presenting: scratched in/on eyeball by a cat For ALL patients calling to schedule any appointment (routine, sick visit, follow up, consult, etc.) in the outpatient setting please ask the following questions: ?? Do you have fever of higher than 101, sore throat with difficulty swallowing or severe shortnessof breath? NO If YES to any of these above symptoms, send a message to triage and do not book. Red dot. If no, an audio or video visit should be booked. ?? Have you had close contact with someone with Coronavirus in the last 14 days? NO ?? Have you traveled abroad? NO ?? Have you traveled recently to another state outside of [place], [place], [place], [place], [place], [place], [place]? NO o If yes, did you quarantine for 14 days or have a negative covid test? NO If yes to any of the above, patient is not to be scheduled in office until after 14 day quarantine or negative covid test. If pain or injury related was it due to an accident at work or from a motor vehicle accident? NO If yes, gather 3rd libertarian insurance information Date of accident/Injury: How long has patient had these symptoms?: one hour ago PCP: Asia Prabhakar Payor: [facility] SELF FUNDED / Plan: HMO $20 HERBERTH 1500 / Product Type: HMO [id number] documented in this encounter Plan of Treatment Not on file documented as of this encounter Visit Diagnoses Not on filedocumented in this encounter Care Teams Block Feeder Relationship Specialty Start Date End Date Asia Prabhakar MD [address] [place] [address] PCP - General Pediatrics 12/03/14 12/09/22 Jennifer Cervantes MD [address] [place] [address] PCP - General Internal Medicine 12/10/22 documented as of this encounter
--- OUTSIDE RECORDS SUMMARY | 2025-04-27 14:06 | XMS_ITS | Encounter Summary ---
Author Organization [facility] Address [address] [place] [address] Care Team Providers Care Physician Name Role Phone Asia Prabhakar MD Primary Care Prov ider Jennifer Cervantes MD Primary Care Provider Un available Encounter Details Date Type Department Care Team Description 03/03/2020 Orders Only Pediatrics - [address] [address] Asia Prabhakar MD [address] [place] [phone] History of exposure to infectious disease Social History Tobacco Use Types Packs/Day Years [...] on file documented as of this encounter Procedures Procedure Name Priority Date/Time Associated Diagnosis Comments WILLEM IADNA SARS-COV-2 COVID-19 AMPLIFIED PROBE TQ Routine 03/01/2020 History of exposure to infectious disease documented in this encounter Results * COVID-19 TESTING (03/01/2020) 03/01/2020 Asia Prabhakar MD LAB [employer] documented in this encounter Visit Diagnoses Diagnosis History of exposure to infectious disease documented in this encounter Care Teams Physician Relationship Specialty Start Date End Date Asia Prabhakar MD [address] [place] [address] PCP - General Pediatrics 12/03/14 12/09/22 Jennifer Cervantes MD [address] [place] [address] PCP - General Internal Medicine 12/10/22 documented as of this encounter
--- OUTSIDE RECORDS SUMMARY | 2025-04-27 14:06 | XMS_ITS | Encounter Summary ---
Author Organization [facility] Address [address] [place] [address] Care Team Providers Care Manuscript Reader Name Role Phone Asia Prabhakar MD Primary Care Prov ider Jennifer Cervantes MD Primary Care Provider Un available Reason for Visit * Reason Onset Date Comments refill request 08/07/2021 Encounter Details Date Type Department Care Team Description 08/07/2021 Refill Pediatrics - [address] [address] Asia Prabhakar MD [address] [place] [address] refill request Social History Tobacco Use Types Packs/Day Years [...] encounter Miscellaneous Notes * Telephone Encounter - Karla Cherry - 08/07/2021 10:37 AM EST When was patients last PE/WCC? 07/18/2020 When is patients next PE/WCC scheduled? We have had to cancel apt recently Wcc 10/02/21 Asia H Beauzile-Delimon RX REQUEST WHEN MED IS ON THE LIST: All of the medications requested were on the CURRENT MEDS list Did you check the Pharmacy information above?: YES Indicate how soon the patient needs the script: BY THE END OF THE DAY Patient would like script to be: E-PRESCRIBED/FAXED TO PHARMACY Is the doctor here today?: YES Can the message wait until the doctor returns?: YES Has the patient been told that the prescription will not be filled until the end of the day? YES Asia Prabhakar Payor: [employer] SELF FUNDED / Plan: HMO $20 HERBERTH 1500 / Product Type: HMO [id number] documented in this encounter Plan of Treatment Not on file documented as of this encounter Visit Diagnoses Not on filedocumented in this encounter Care Teams Manuscript Reader Relationship Specialty Start Date End Date Asia Prabhakar MD [address] [place] [phone] PCP - General Pediatrics 12/03/14 12/09/22 Jennifer Cervantes MD [address] [place] [address] PCP - General Internal Medicine 12/10/22 documented as of this encounter
--- OUTSIDE RECORDS SUMMARY | 2025-04-27 14:06 | XMS_ITS | Encounter Summary ---
Author Organization [facility] Address [address] [place] [address] Care Team Providers Care Take Out Waiter Name Role Phone Asia Prabhakar MD Primary Care Prov ider Jennifer Cervantes MD Primary Care Provider Un available Reason for Referral * EXTERNAL (Priority) - Authorized/Booked Specialty Diagnoses / Procedures Referred By Contac t Referred To Contact Neurology Procedures REFERRAL TO NEUROLOGY Asia Prabhakar MD [address] [place] [address] Ranjith Aguirre MD Referral ID Status Reason Start Date Expiration Date V isits Requested Visits Authorized [id number] Authorized/B ooked 09/02/2022 12/01/2022 1 1 Encounter Details Date Type Department Care Team Description 09/02/2022 Orders Only Pediatrics - [address] [address] Asia Prabhakar MD [address] [place], [place] Migraine without aura and without status migrainosus, not intractable (Primary Dx) Social History Tobacco Use Types Packs/Day Years [...] documented as of this encounter Visit Diagnoses Diagnosis Migraine without aura and without status migrainosus, not intractable- Primary Migraine without aura, without mention of intractable migraine without mention of status migrainosus documented in this encounter Care Teams Take Out Waiter Relationship Specialty Start Date End Date Asia Prabhakar MD [address] [place] [address] PCP - General Pediatrics 12/03/14 12/09/22 Jennifer Cervantes MD [address] [place] [address] PCP - General Internal Medicine 12/10/22 documented as of this encounter
--- OUTSIDE RECORDS SUMMARY | 2025-04-27 14:06 | XMS_ITS | Encounter Summary ---
Author Organization [facility] Address [address] [place] [address] Care Team Providers Care Plant Cytologist Name Role Phone Asia Prabhakar MD Primary Care Prov ider Jennifer Cervantes MD Primary Care Provider Un available Encounter Details Date Type Department Care Team Description 09/25/2020 Vessel Liner Report Medical Records [address] [place] [phone] [place] [address] Monica Social History Tobacco Use Types Packs/Day Years [...] have Coronavirus / COVID-19? No / Unsure 09/22/2020 8:13 AM EDT documented as of this encounter Plan of Treatment Not on file documented as of this encounter Visit Diagnoses Not on filedocumented in this encounter Care Teams Plant Cytologist Relationship Specialty Start Date End Date Asia Prabhakar MD [address] [place] [id number] PCP - General Pediatrics 12/03/14 12/09/22 Jennifer Cervantes MD [address] [place] [address] PCP - General Internal Medicine 12/10/22 documented as of this encounter
--- OUTSIDE RECORDS SUMMARY | 2025-04-27 14:06 | XMS_ITS | Encounter Summary ---
Author Organization [facility] Address [address] [place] [address] Care Team Providers Care Data Center Technician Name Role Phone Asia Prabhakar MD Primary Care Prov ider Jennifer Cervantes MD Primary Care Provider Un available Encounter Details Date Type Department Care Team Description 04/22/2017 Records And Information Manager Report Medical Records [address] [place] [address] Solange Heard MD Social History Tobacco Use [...] on filedocumented in this encounter Care Teams Data Center Technician Relationship Specialty Start Date End Date Asia Prabhakar MD [address] [place] [address] PCP - General Pediatrics 12/03/14 12/09/22 Jennifer Cervantes MD [address] [place] [address] PCP - General Internal Medicine 12/10/22 documented as of this encounter
--- OUTSIDE RECORDS SUMMARY | 2025-04-27 14:06 | XMS_ITS | Encounter Summary ---
Author Organization [facility] Address [address] [place] [address] Care Team Providers Care Diamond Polisher Name Role Phone Asia Prabhakar MD Primary Care Prov ider Jennifer Cervantes MD Primary Care Provider Un available Reason for Visit * Reason Comments E-prescribe Rx Request Encounter Details Date Type Department Care Team Description 09/25/2021 Refill Dermatology [address] [phone] Sheron Jha PA-C E-prescribe Rx Request Social History Tobacco Use Types Packs/Day Years [...] on filedocumented in this encounter Care Teams Diamond Polisher Relationship Specialty Start Date End Date Asia Prabhakar MD [address] [place] [address] PCP - General Pediatrics 12/03/14 12/09/22 Jennifer Cervantes MD [address] [place], [place] PCP - General Internal Medicine 12/10/22 documented as of this encounter
--- OUTSIDE RECORDS SUMMARY | 2025-04-27 14:06 | XMS_ITS | Encounter Summary ---
Author Organization [facility] Address [address] [place] [address] Care Team Providers Care Engineering Test Mechanic Name Role Phone Brook Lozano MD Primary Care Provider Haydee vailable Asia Prabhakar MD Primary Care Prov ider Jennifer Cervantes MD Primary Care Provider Un available Encounter Details Date Type Department Care Team Description 01/17/2010 Business Doc Medical Records [address] [place] [address] Abstract, Provider Social History Tobacco Use Types Packs/Day Years [...] on filedocumented in this encounter Care Teams Engineering Test Mechanic Relationship Specialty Start Date End Date Brook Lozano MD PCP - General 11/15/09 12/02/14 Asia Prabhakar MD [address] [place] [address] [phone] PCP - General Pediatrics 12/03/14 12/09/22 Jennifer Cervantes MD [address] [place], [place] PCP - General Internal Medicine 12/10/22 documented as of this encounter
--- OUTSIDE RECORDS SUMMARY | 2025-04-27 14:06 | XMS_ITS | Encounter Summary ---
Author Organization [facility] Address [address] [place] [address] Phone Care Team Providers Care Full Time Staff Interpreter Name Role Phone Unavailable Primary Care Provider Unavailabl e Encounter Details Date Type Department Care Team (Late st Contact Info) Description 11/23/2017 Conversion [facility]counter [facility] [address] [address] Social History Tobacco Use Types Packs/Day Years [...]
--- OUTSIDE RECORDS SUMMARY | 2025-04-27 14:06 | XMS_ITS | Encounter Summary ---
Author Organization [facility] Address [address] [place] [address] Care Team Providers Care Senior Quality Control Technician Name Role Phone Asia Prabhakar MD Primary Care Prov ider Jennifer Cervantes MD Primary Care Provider Un available Encounter Details Date Type Department Care Team Description 06/07/2015 Wildlife Protector Report Medical Records [address] [place] [address] Shadia Partida MD [address] [place] [address] Social History Tobacco Use Types Packs/Day Years [...] on filedocumented in this encounter Care Teams Senior Quality Control Technician Relationship Specialty Start Date End Date Asia Prabhakar MD [address] [place], [place] [phone] PCP - General Pediatrics 12/03/14 12/09/22 Jennifer Cervantes MD [address] [place] [address] PCP - General Internal Medicine 12/10/22 documented as of this encounter
--- OUTSIDE RECORDS SUMMARY | 2025-04-27 14:06 | XMS_ITS | Encounter Summary ---
Author Organization [facility] Address [address] [place] [address] Care Team Providers Care Directory Operator Name Role Phone Asia Prabhakar MD Primary Care Prov ider Jennifer Cervantes MD Primary Care Provider Un available Reason for Visit * Reason Onset Date Comments refill request 03/03/2020 Encounter Details Date Type Department Care Team Description 03/03/2020 Refill Pediatrics - [address] [address] Asia Prabhakar MD [address] [place] [id number] refill request Social History Tobacco Use Types [...] * Telephone Encounter - Karla Cherry - 03/03/2020 2:00 PM EDT When was patients last PE/WCC? 08/05/2019 When is patients next PE/WCC scheduled? Due 07/2020 Asia Prabhakar RX REQUEST WHEN MED IS ON THE LIST: All of the medications requested were on the CURRENT MEDS list Did you check the Pharmacy information above?: NO Indicate how soon the patient needs the script: ANTONIO Patient would like script to be: E-PRESCRIBED/FAXED TO PHARMACY Is the doctor here today?: YES Can the message wait until the doctor returns?: YES Has the patient been told that the prescription will not be filled until the end of the day? YES Asia Prabhakar Payor: [employer] SELF FUNDED / Plan: HMO $20 [place] 1500 / Product Type: HMO [id number] documented in this encounter Plan of Treatment Not on file documented as of this encounter Visit Diagnoses Not on filedocumented in this encounter Care Teams Directory Operator Relationship Specialty Start Date End Date Asia Prabhakar MD [address] [place] [address] PCP - General Pediatrics 12/03/14 12/09/22 Jennifer Cervantes MD [address] [place] [address] PCP - General Internal Medicine 12/10/22 documented as of this encounter
--- OUTSIDE RECORDS SUMMARY | 2025-04-27 14:06 | XMS_ITS | Encounter Summary ---
Author Organization [facility] Address [address] [place] [address] Care Team Providers Care [facility] Owner Name Role Phone Asia Prabhakar MD Primary Care Prov ider Jennifer Cervantes MD Primary Care Provider Un available Encounter Details Date Type Department Care Team Description 07/23/2018 Information Officer Report Medical Records [address] [place] [id number] Solange Heard MD Social History Tobacco Use [...] on filedocumented in this encounter Care Teams [facility] Owner Relationship Specialty Start Date End Date Asia Prabhakar MD [address] [place] [address] PCP - General Pediatrics 12/03/14 12/09/22 Jennifer Cervantes MD [address] [place] [address] PCP - General Internal Medicine 12/10/22 documented as of this encounter
--- OUTSIDE RECORDS SUMMARY | 2025-04-27 14:06 | XMS_ITS | Encounter Summary ---
Author Organization [facility] Address [address] [place] [address] Care Team Providers Care Felt Finisher Name Role Phone Asia Prabhakar MD Primary Care Prov ider Jennifer Cervantes MD Primary Care Provider Un available Encounter Details Date Type Department Care Team Description 10/22/2018 Collection Systems Worker Report Medical Records [address] [place] [phone] Solange Heard MD Social History Tobacco Use [...] on filedocumented in this encounter Care Teams Felt Finisher Relationship Specialty Start Date End Date Asia Prabhakar MD [address] [place] [address] PCP - General Pediatrics 12/03/14 12/09/22 Jennifer Cervantes MD [address] [place] [address] PCP - General Internal Medicine 12/10/22 documented as of this encounter
--- OUTSIDE RECORDS SUMMARY | 2025-04-27 14:06 | XMS_ITS | Encounter Summary ---
Author Organization [facility] Address [address] [place] [address] Care Team Providers Care Parent Aide Name Role Phone Asia Prabhakar MD Primary Care Prov ider Jennifer Cervantes MD Primary Care Provider Un available Reason for Visit * Reason Comments E-prescribe Rx Request Encounter Details Date Type Department Care Team Description 08/27/2022 Refill Pediatrics - [address] [address] Asia Prabhakar MD [address] [place] [phone] E-prescribe Rx Request Social History Tobacco Use [...] encounter Miscellaneous Notes * Telephone Encounter - Joy Clark NP - 08/27/2022 8:33 AM EST Approved for refill. PE due in late September. Please book one with her. * Telephone Encounter - Suzette Kruse - 08/27/2022 8:18 AM EST When was patients last PE/WCC? 10/02/2021 When is patients next PE/WCC scheduled? Asia Prabhakar RX REQUEST WHEN MED IS ON THE LIST: All of the medications requested were on the CURRENT MEDS list Did you check the Pharmacy information above?: YES Indicate how soon the patient needs the script: BY THE END OF THE DAY Patient would like script to be: E-PRESCRIBED/FAXED TO PHARMACY Is the doctor here today?: NO Can the message wait until the doctor returns?: NO Has the patient been told that the prescription will not be filled until the end of the day? YES Asia Prabhakar Payor: [facility] SELF FUNDED / Plan: HMO $20 [place] 1500 / Product Type: HMO [id number] documented in this encounter Plan of Treatment Not on file documented as of this encounter Visit Diagnoses Not on filedocumented in this encounter Care Teams Parent Aide Relationship Specialty Start Date End Date Asia Prabhakar MD [address] [place] [address] PCP - General Pediatrics 12/03/14 12/09/22 Jennifer Cervantes MD [address] [place] [address] PCP - General Internal Medicine 12/10/22 documented as of this encounter
== END 2025-04-27 11:45 | disposition home or self-care (01) ==
LOC: HO.HMCFM 10:51
PROVIDERS: PCP Nurse Practitioner Family; Visit Provider Nurse Practitioner Family
DX: F41.1 Generalized anxiety disorder (principal); G43.009 Migraine without aura, not intractable, without status migrainosus; Z23 Encounter for immunization

== ENCOUNTER → 2025-04-27 10:51 | Outpatient (BNVA) | payer OTHER, SELFPAY | PROVIDERS: Visit Provider Nurse Practitioner Family | DX: F41.1 Generalized anxiety disorder (principal); G43.009 Migraine without aura, not intractable, without status migrainosus; Z23 Encounter for immunization | CPT/HCPCS: 90471; 90656 ==

== ENCOUNTER 2025-06-10 12:19 | Outpatient (AMB) | payer OTHER, SELFPAY ==
--- NOTE | 2025-06-10 12:35 | A.OFFPC_ITS ---
Vital Signs 06/10/25 12:39 Height 5 ft 1 in Weight 107 lb 4 oz BMI 20.3 BP 98/66 Blood Pressure Location Lt brachial Position Sitting Respiration 12 Pulse 93 Pulse Source Pulse Oximeter Temp 97.8 F Temp Source Oral Pulse Oximetry (%) 99 Oxygen Delivery Method Room Air Intake Visit Reasons: 6-8 weeks fu migraine/ARBEN Intake Note: Follow up on migraine. Scarrer Required: No Allergies nickel Allergy (Severe, Verified 06/10/25 12:36) Unknown Penicillins Allergy (Verified 06/10/25 12:36) Hives Medication List - Last Reconciled 06/10/25 by Mahi Burnett, [facility]- citalopram 10 mg PO DAILY clindamycin phosphate 1% topical QAM magnesium oxide 400 mg PO BEDTIME norgestimate-ethinyl estradiol 0.25-0.035 mg (Sprintec (28)) 1 tab PO DAILY ondansetron HCl 4 mg PO Q8H PRN 3 days riboflavin (vitamin B2) 400 mg PO BEDTIME ubrogepant (Ubrelvy) 50 mg PO DAILY PRN Tobacco use date assessed: 06/10/25 Dental Screening Dental Screen Date: 06/10/25 Did you have a dental visit in the last 12 months?: Yes Did you have a dental problem in the last 6 months where you did not have access to dental care?: No Was dental information given to patient?: Patient has dentist HPI HPI Comments History of Present Illness Details 19 y/o F with migraine w/o aura, ARBEN, ac ne, fhx melanoma Social: [employer]; has a boyfriend; lives w/ parents and brother; 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 Anxiety: - The patient is taking citalopram 10 mg , which has provided some improvement in her anxiety. - She reports that her anxiety level is about the same as the last visit, and she still experiences significant anxiety when faced with a stressor. - Vomiting associated with anxiety has r esolved. - Denies SI/HI Migraine headaches: - The patient reports her headaches have improved, with the frequency decreasing from approximately five per month to three in May. - She is taking magnesium and riboflavin daily for prophylaxis. - She uses Ubrelvy for acute treatment, which she reports is effective with a single dose. Past Medical History - Anxiety - Migraine headaches Review of Systems - Neurological: Reports improvement in m igraine headache frequency. - Psychiatric: Reports persistent situat ional anxiety despite some improvement with medication. - Gastrointestinal: Denies vomiting. Physical Exam General: Well developed, well nourished, in no acute distress. Appears stated age. Head: Normocephalic, atraumatic. Eyes: Pupils are equal, round and reactive to light and accommodation. Conjunctivae are clear. Vision grossly normal. Lungs: Clear to auscultation bilaterally. No rales, rhonchi or wheeze noted. Good air flow in all [place]. Heart: Regular rate and rhythm. No murmurs, click, rubs or gallops are noted. Psych: Mood and affect appropriate. Anxiety present but improved with medication adjustment. Medical Decision Making The patient is a 19-year-old female here for a follow-up on anxiety and migraine headaches. Her anxiety has shown an incomplete response to citalopram 10 mg, as she still experiences significant anxiety with specific triggers. Given the room for improvement and her agreement, we will increase her citalopram dose to 20 mg daily. Her migraine headaches have improved, with frequency decreasing from five to three per month while on prophylactic magnesium and riboflavin. The acute treat ment with Ubrelvy continues to be effective with a single dose. We will continue this successful regimen and renew her prescription for Ubrelvy. A follow-up visit is scheduled in 6-8 weeks via video to assess her response to the medication adjustment. Plan 1. Anxiety - The patient's anxiety is partially con trolled on citalopram 10 mg, with persistent situational symptoms. - The plan is to increase citalopram to 20 mg daily. - The patient was advised she can take t wo of her remaining 10 mg tablets until the new prescription for 20 mg tablets is filled. - A new 90-day prescription for citalopr am 20 mg will be sent to the pharmacy. 2. Migraine Headaches - The patient's headaches are improving, with a decreased frequency to three per month. - She will continue taking flpt-csf-dtyp ter magnesium and riboflavin daily for prophylaxis. - Her prescription for Ubrelvy for acute treatment will be renewed. - Given the improvement, continuing to t rack her headaches is optional. 3. Follow-Up - A follow-up visit is scheduled in 6-8 weeks to monitor the response to the medication change. - The visit will be conducted via a vide o call. Patient Instructions - You will increase your dose of citalop zhou to 20 mg once daily for anxiety. - Until you filler picker your new prescriptio n, it is safe to take two of your leftover 10 mg tablets at the same time. - Continue taking magnesium and riboflav in every day to help prevent migraines. - Your prescription for Ubrelvy will be renewed for you to use as needed when a migraine occurs. - You do not need to keep tracking your headaches unless you want to, as they have improved. - Please schedule a follow-up video appo intment in 6 to 8 weeks. - If you have any problems or need help before your next visit, please send a message through the online patient portal. Consent Patient was informed and verbally consented to the use of an ambient scribe for clinic note documentation during this visit. [facility] Medical History (Updated 04/27/25 @ 11:41 by PAL[facility] Anxiety Headache Surgical History (Updated 02/16/25 @ 11:01 by Kiley Ludwig MA) No pertinent past surgical history Family History Sister Asthma Brother Asthma Paternal Grandmother Diabetes Maternal Grandfather Melanoma Social History (Updated 04/27/25 @ 11:05 by Sally Martinez CMA) Household Members: Family Both parents involved: Yes Housing: House Are you a primary acute care nursing assistant to a significant other at home: No Do you presently have visiting nurse or other home services: No 75 years or older and lives alone: No Alcohol intake: never Patient Tobacco Use Status: Never used Tobacco e-Cigarette/Vaping Use: Never Used Second Hand Smoke Exposure: No service: No Current occupational status: employed and student Cognitive needs: No Hearing needs: No Vision needs: Yes (wear contacts) Questionnaire PHQ-9 Over the last 2 weeks, how often have you been bothered by any of the following problems? 1. Little interest or pleasure in doing things: not at all 2. Feeling down, depressed, or hopeless: not at all 3. Trouble falling or staying asleep, or sleeping too much: not at all 4. Feeling tired or having little energy: not at all 5. Poor appetite or overeating: not at all 6. Feeling bad about yourself - or that you are a failure or have let yourself or your family down: not at all 7. Trouble concentrating on things, such as reading the newspaper or watching television: not at all 8. Moving or speaking so slowly that other people could have noticed. Or the opposite - being so fidgety or restless that you have been moving around a lot more than usual: not at all 9. Thoughts that you would be better off or of hurting yourself in some way: not at all Total score: 0 Depression Screening Interpretation: Negative Depression Screening Done: Yes Source: Developed by Drs. Clayton Nunez, Iqra Jones, Amilcar Hill and colleagues, with an educational lili from [employer]. Thrive Questionnaire Date Thrive assessed: 06/10/25 I am a: Patient What is your living situation today?: I have a steady place to live Within the past 12 months, did the food you bought not last and you didn't have the money to get more?: Never true Within the past 12 months, did you worry whether your food would run out before you got money to buy more?: Never true Do you have trouble paying for medicines?: No Do you have trouble getting transportation to medical appointments?: No Do you have trouble paying your heating and electricity bill?: No Do you have trouble taking care of your child, family member or friend?: No Do you have trouble with day-to-day activities such as bathing, preparing meals, shopping, managing finances, etc.?: No Are you currently unemployed and looking for a job?: No Are you interested in more education?: Yes Please select the resources that you would like help with: None Currently or been in a relationship where the following occur: No concerns re ported THRIVE Score: 0 ARBEN-7 AMB Questionnaire ARBEN-7 Date ARBEN - 7 assessed: 06/10/25 Feeling nervous, anxious, or on edge: 0 = Not at all Not being able to stop or control worryin = Not at all Worrying too much about different things: 0 = Not at all Trouble relaxin = Not at all Being so restless that it is hard to sit still: 0 = Not at all Becoming easily annoyed or irritable: 0 = Not at all Feeling afraid as if something awful might happen: 0 = Not at all Total ARBEN-7 score (0-4 normal; 5-9 mild; 10-14 moderate; 15-21 severe): 0 Source: Developed by Drs. Clayton Nunez, Iqra Jones, Amilcar Hill and colleagues, with an educational lili from [employer]. ARBEN-7 Assessment Billing ARBEN-7 Assessment Tool: ARBNE-7 Assessment 27744 Physical exam (Primary Care) Vital Signs: Last Vital Signs Temp 97.8 F 06/10/25 12:39 Pulse 93 06/10/25 12:39 Resp 12 06/10/25 12:39 BP 98/66 06/10/25 12:39 Pulse Ox 99 06/10/25 12:39 Oxygen Delivery Method Room Air 06/10/25 12:39 BMI result Body Mass Index 20.3 Tobacco/Smoking Status: Tobacco use Status Tobacco use date assessed 06/10/25 06/10/25 12:36 Patient Tobacco Use Status Never used Tobacco 06/10/25 12:36 e-Cigarette/Vaping Use Never Used 06/10/25 12:36 PHQ-9: PHQ-9 Score PHQ-9: Total score 0 06/10/25 12:36 Depression Screening Interpretation: Negative Thrive Assessment: Date of Thrive Assessment Date Thrive assessed 06/10/25 06/10/25 12:36 Currently or been in a relationship where the following occur: No concerns reported Coding Level of Care Code Est Pt Level 3 (06455) Complex visit Add On G2211 Diagnoses ARBEN (generalized anxiety disorder) F41.1 Migraine without aura and without status migrainosus, not intractable G43.009 Status migrainosus presence: without status migrainosus Intractability: not intractable Additional Codes ARBEN-7 Assessment Billing - ARBEN-7 Assessment Tool: ARBEN-7 Assessment 40393 ([id number]) Assessment & Plan Assessment & Plan (1) ARBEN (generalized anxiety disorder): Code(s): F41.1 - Generalized anxiety disorder Category: Medical (2) Migraine without aura: Code(s): G43.009 - Migraine without aura, not intractable, without status migrainosus Category: Medical Qualifiers: Status migrainosus presence: without status migrainosus Intractability: not intractable Qualified Code(s): G43.009 - Migraine without aura, not intractable, without status migrainosus Plan . Medications: New citalopram 20 mg PO DAILY 90 tabs 0RF Refilled ubrogepant (Ubrelvy) 50 mg PO DAILY PRN 30 tabs 2RF migraine headache Discontinued citalopram Discontinued Reason: Doctor's Order 10 mg PO DAILY 90 tabs 0RF
[2025-06-10 12:39] VITALS: BP 98/66; PULSE 93; RESP 12; TEMP 36.6; O2SAT 99; BMI 20.3
== END 2025-06-10 13:06 | disposition home or self-care (01) ==
LOC: HO.HMCFM 12:20
PROVIDERS: PCP Nurse Practitioner Family; Visit Provider Nurse Practitioner Family
DX: F41.1 Generalized anxiety disorder (principal); G43.009 Migraine without aura, not intractable, without status migrainosus

== ENCOUNTER → 2025-06-10 12:19 | Outpatient (BNVA) | payer OTHER, SELFPAY | PROVIDERS: PCP Nurse Practitioner Family; Visit Provider Nurse Practitioner Family | DX: F41.1 Generalized anxiety disorder (principal); G43.009 Migraine without aura, not intractable, without status migrainosus | CPT/HCPCS: 96127 ==